=== PATIENT | female | born 1970 | race Caucasian/White ===

== ENCOUNTER 2016-11-08 18:02 | Emergency (ER) ==
[2016-11-08 18:12] VITALS: BP 134/83; TEMP 99.1; BMI 29.0
--- NOTE | 2016-11-08 18:36 | ED.PDOC ---
General ED Provider: Dr. CRYSTAL HURLEY Chief Complaint: Eye Problem Stated Complaint: bilateral eye irritation Time Seen by Physician: 18:20 Mode of Arrival: Walk-In Information Source: Patient Exam Limitations: No limitations Primary Care Provider: ANIBAL HA Nursing and Triage Documentation Reviewed and Agree: Yes EENT Complaint Exam - Eye Complaint/Exam Onset/Duration: some soot got into both eyes stepped on a small mario Symptoms Are: Still present Timing: Constant Initial Severity: Mild Current Severity: Mild Location: Bilateral Aggravating: Reports: Light Alleviating: Reports: None Associated Signs and Symptoms: Denies: Photophobia, Clear drainage, Purulent drainage, Vision impairment, Fever, Swelling Eye Surgical History: Reports: None Penetrating Injury Risk Factors: None Globe Rupture Risk Factors: None Acute Glaucoma Risk Factors: None Optic Artery Occlusion Risk Factors: None Visual Field: Normal Extraocular Movement: Normal Orbit Findings: Normal Globe Findings: Intact Lid Findings: Erythema Corneal Findings: Clear Differential Diagnoses: Conjunctivitis Review of Systems - Review Of Systems Constitutional: Reports: No symptoms Eyes: Reports: Other (counjunctiva red bilateral) Ears, Nose, Mouth, Throat: Reports: No symptoms Respiratory: Reports: No symptoms Cardiac: Reports: No symptoms GI: Reports: No symptoms : Reports: No symptoms Musculoskeletal: Reports: No symptoms Skin: Reports: No symptoms Neurological: Reports: No symptoms Endocrine: Reports: No symptoms Hematologic/Lymphatic: Reports: No symptoms All Other Systems: Reviewed and Negative Past Medical History - Past Medical History Previously Healthy: Yes Endocrine: Reports: Hypothyroid Cardiovascular: Reports: None Respiratory: Reports: Asthma Hematological: Reports: Other (LUPUS) Gastrointestinal: Reports: GERD Genitourinary: Reports: None Neuro/Psych: Reports: Anxiety, Depression Musculoskeletal: Reports: Arthritis Cancer: Reports: None Last Menstrual Period: unknown Other Pertinent Past Medical History: on prednisone for RA - Surgical History General Surgical History: Reports: Hysterectomy, Cholecystectomy, Tonsillectomy , Adenoidectomy, Orthopedic (KNEE SURGERY, LEFT), Back Surgery (NEURO SPINE CORD STIMULATOR CARPAL TUNNEL DGG), Other (NEURO SPINE CORD STIMULATOR CARPAL TUNNEL DGG-gastric sleeve) - Family History Family History: Reports: Unknown - Social History Smoking Status: Never smoker Hx Substance Use: No Alcohol Screening: Occasionally Physical Exam - Physical Exam Appearance: Well-appearing, No pain distress, Well-nourished Eyes: Conjunctiva inflammed (right, left) ENT: Ears normal, Nose normal, Oropharynx normal Respiratory: Airway patent, Breath sounds clear, Breath sounds equal, Respirations nonlabored Cardiovascular: RRR, Pulses normal, No rub, No murmur GI/: Soft, Nontender, No masses, Bowel sounds normal, No Organomegaly Musculoskeletal: Normal strength, ROM intact, No edema, No calf tenderness Skin: Warm, Dry, Normal color Neurological: Sensation intact, Motor intact, Reflexes intact, Cranial nerves intact, Alert, Oriented Psychiatric: Affect appropriate, Mood appropriate Critical Care Note - Critical Care Note Total Time (mins): 0 Course - Course Vital Signs: Temp Pulse Resp BP Pulse Ox 11/08/16 18:05 99.1 F 78 20 134/83 98 Departure - Departure Time of Disposition: 18:36 Disposition: HOME SELF-CARE Discharge Problem: Conjunctivitis Qualifiers: Conjunctivitis type: acute Acute conjunctivitis type: bacterial Instructions: Conjunctivitis (ED) Condition: Good Pt referred to PMD for follow-up: No Additional Instructions: Please call your Family Physician as soon as possible to schedule a follow-up appointment. Allergies/Adverse Reactions: Allergies amoxicillin trihydrate [From Augmentin] Adverse Reaction (Verified 05/28/16 16: 23) cephalexin monohydrate [From Keflex] Adverse Reaction (Verified 05/28/16 16:23) dicloxacillin sodium [From Pathocil] Adverse Reaction (Verified 05/28/16 16:23) nefazodone HCl [From Serzone] Adverse Reaction (Verified 05/28/16 16:23) Penicillins Adverse Reaction (Verified 11/08/16 18:13) potassium clavulanate [From Augmentin] Adverse Reaction (Verified 05/28/16 16:23 ) Home Medications: Ambulatory Orders Tizanidine HCl [Zanaflex] 4 mg PO TID 10/30/13 Levothyroxine Sodium [Synthroid] 88 mcg PO DAILY 12/01/13 Budesonide/Formoterol Fumarate [Symbicort 160-4.5 Mcg Inhaler] 2 puff IH BID 12/17 Albuterol Sulfate [Proair Hfa] 2 puff IH Q6H PRN 01/06/16 Fluoxetine HCl [Prozac] 40 mg PO DAILY 05/28/16 Multivitamin 1 cap PO DAILY 05/28/16 Disposition Discussed With: Patient
== END 2016-11-08 19:02 | disposition home or self-care (01) ==
LOC: ED 18:02
DX: H10.33 Unspecified acute conjunctivitis, bilateral (principal)
CPT/HCPCS: 99282

== ENCOUNTER 2017-01-09 13:02 | Emergency (ER) ==
[2017-01-09 13:10] VITALS: BP 155/83; TEMP 98.7; BMI 28.3
--- NOTE | 2017-01-09 13:19 | ED.PDOC ---
General ED Provider: Dr. YARIEL HERNANDEZ-ER Chief Complaint: Puncture Wound Stated Complaint: i stepped on a nail Time Seen by Physician: 13:16 Mode of Arrival: Walk-In Information Source: Patient Exam Limitations: No limitations Primary Care Provider: ANIBAL HA Nursing and Triage Documentation Reviewed and Agree: Yes Skin Complaint Exam - Skin/Soft Tissue Complaint/Exam Onset/Duration: a few minutes Symptoms Are: Still present Timing: Constant Initial Severity: Mild Current Severity: Mild Location: bottom of right foot Character: Reports: Painful. Denies: Redness, Swelling, Raised Aggravating: Reports: Touch Alleviating: Reports: None Associated Signs and Symptoms: Reports: Tenderness. Denies: Fever, Chills, Itching, Drainage, Bruising, Red streaks, Joint swelling Related History: Reports: Recent trauma Related Surgical History: Reports: None Recent Exposure to Others w/Similar Symptoms: No Skin Findings: Present: Other Joint Tenderness Present: No Differential Diagnoses: Other Review of Systems - Review Of Systems Constitutional: Reports: No symptoms Eyes: Reports: No symptoms Ears, Nose, Mouth, Throat: Reports: No symptoms Respiratory: Reports: No symptoms Cardiac: Reports: No symptoms GI: Reports: No symptoms, Other : Reports: No symptoms Musculoskeletal: Reports: No symptoms Skin: Reports: Other Neurological: Reports: No symptoms Endocrine: Reports: No symptoms Hematologic/Lymphatic: Reports: No symptoms All Other Systems: Reviewed and Negative Past Medical History - Past Medical History Previously Healthy: Yes Endocrine: Reports: Hypothyroid Cardiovascular: Reports: None Respiratory: Reports: Asthma Hematological: Reports: Other (LUPUS) Gastrointestinal: Reports: GERD Genitourinary: Reports: None Neuro/Psych: Reports: Anxiety, Depression Musculoskeletal: Reports: Arthritis Cancer: Reports: None Last Menstrual Period: 1999 Other Pertinent Past Medical History: on prednisone for RA - Surgical History General Surgical History: Reports: Hysterectomy, Cholecystectomy, Tonsillectomy , Adenoidectomy, Orthopedic (KNEE SURGERY, LEFT), Back Surgery (NEURO SPINE CORD STIMULATOR CARPAL TUNNEL DGG), Other (NEURO SPINE CORD STIMULATOR CARPAL TUNNEL DGG-gastric sleeve) - Family History Family History: Reports: Unknown - Social History Smoking Status: Never smoker Hx Substance Use: No Alcohol Screening: Occasionally - Immunizations Tetanus Shot up to Date: Yes Physical Exam - Physical Exam Appearance: Well-appearing, No pain distress, Well-nourished Pain Distress: Mild Eyes: ASHLEY, EOMI, Conjunctiva clear ENT: Ears normal, Nose normal, Oropharynx normal Neck: Supple Respiratory: Airway patent Cardiovascular: RRR, Pulses normal, No rub, No murmur GI/: Soft, Nontender, No masses, Bowel sounds normal, No Organomegaly Musculoskeletal: Normal strength, ROM intact, No edema, No calf tenderness Skin: Warm, Dry, Normal color Neurological: Sensation intact, Motor intact, Reflexes intact, Cranial nerves intact, Alert, Oriented Psychiatric: Affect appropriate, Mood appropriate Critical Care Note - Critical Care Note Total Time (mins): 0 Course - Course Orders, Labs, Meds: Orders Category Date Time Status Wound care [ED WOUND CARE] .ONCE EMERGENCY 01/09/17 13:16 Active Vital Signs: Temp Pulse Resp BP Pulse Ox 01/09/17 13:03 98.7 F 69 20 155/83 H 98 Departure - Departure Time of Disposition: 13:18 Disposition: HOME SELF-CARE Discharge Problem: Puncture wound Instructions: Puncture Wound (ED) Condition: Good Pt referred to PMD for follow-up: Yes Additional Instructions: wash with soap and water daily and apply triple antbx till healed Allergies/Adverse Reactions: Allergies amoxicillin trihydrate [From Augmentin] Adverse Reaction (Verified 05/28/16 16: 23) cephalexin monohydrate [From Keflex] Adverse Reaction (Verified 05/28/16 16:23) dicloxacillin sodium [From Pathocil] Adverse Reaction (Verified 05/28/16 16:23) nefazodone HCl [From Serzone] Adverse Reaction (Verified 05/28/16 16:23) Penicillins Adverse Reaction (Verified 11/08/16 18:13) potassium clavulanate [From Augmentin] Adverse Reaction (Verified 05/28/16 16:23 ) Home Medications: Ambulatory Orders Tizanidine HCl [Zanaflex] 4 mg PO TID 10/30/13 Levothyroxine Sodium [Synthroid] 88 mcg PO DAILY 12/01/13 Fluoxetine HCl [Prozac] 40 mg PO DAILY 05/28/16 Multivitamin 1 cap PO DAILY 05/28/16 Disposition Discussed With: Patient
== END 2017-01-09 13:27 | disposition home or self-care (01) ==
LOC: ED 13:02
DX: S91.339A Puncture wound without foreign body, unspecified foot, initial encounter (principal); W45.0XXA Nail entering through skin, initial encounter
CPT/HCPCS: 99283

== ENCOUNTER 2017-03-30 10:13 | Outpatient (CLI) ==
--- NOTE | 2017-03-30 11:04 | US ---
EXAM: Ultrasound thyroid. HISTORY: Thyromegaly. COMPARISON: None available. TECHNIQUE: Guo-scale and color Doppler images. FINDINGS: The right lobe of the thyroid measures 4.1 x 1.7 x 1.7 cm. There is heterogeneous echogenicity witho ut discrete nodule. The thyroid isthmus measures 0.4 cm. The left lobe of the thyroid measures 3.3 x 1.1 x 1.2 cm. There is heterogeneous echogenicity witho ut discrete nodule. IMPRESSION: Heterogeneous thyroid gland without discrete nodule.
== END 2017-03-30 10:14 | disposition home or self-care (01) ==
LOC: RAD 10:13
PROVIDERS: ATTEND Nurse Practitioner
DX: E01.0 Iodine-deficiency related diffuse (endemic) goiter (principal); E03.9 Hypothyroidism, unspecified
CPT/HCPCS: 36415; 84443

== ENCOUNTER 2017-09-30 10:33 | Outpatient (CLI) | END 2017-09-30 10:34 | disposition home or self-care (01) | LOC: LAB 10:33 | PROVIDERS: ATTEND Nurse Practitioner | DX: E03.9 Hypothyroidism, unspecified (principal); L65.9 Nonscarring hair loss, unspecified; R29.898 Other symptoms and signs involving the musculoskeletal system; R53.83 Other fatigue; R76.8 Other specified abnormal immunological findings in serum; Z97.8 Presence of other specified devices; Z98.84 Bariatric surgery status | CPT/HCPCS: 36415; 84439; 84443; 84481 ==

== ENCOUNTER 2018-01-11 14:05 | Outpatient (CLI) ==
--- NOTE | 2018-01-11 15:56 | DI ---
EXAM: Three views of the left hand HISTORY: Left hand pain. COMPARISON: Right hand x-rays same day FINDINGS: There is no cortical irregularity or displaced fracture of the left hand. There is no lyti c or blastic lesion. Joint spaces are maintained. There is no periosteal reaction. Soft tissues are unremarkable. IMPRESSION: No acute abnormality or displaced fracture of the left hand.
--- NOTE | 2018-01-11 15:58 | DI ---
EXAM: Three views of the right hand HISTORY: Right hand pain. COMPARISON: Left hand x-rays same day FINDINGS: There is no cortical irregularity or displaced fracture of the right hand. There is no lyt ic or blastic lesion. The joint spaces are maintained. Soft tissues are unremarkable. IMPRESSION: No acute abnormality or displaced fracture of the right hand.
== END 2018-01-11 14:06 | disposition home or self-care (01) ==
LOC: RAD 14:05
PROVIDERS: ATTEND Internal Medicine Rheumatology
DX: M25.50 Pain in unspecified joint (principal); M79.642 Pain in left hand; M79.641 Pain in right hand

== ENCOUNTER 2018-02-15 12:52 | Outpatient (CLI) | END 2018-02-15 12:53 | disposition home or self-care (01) | LOC: FCC-LAB 12:52 | PROVIDERS: ATTEND Family Medicine | DX: Z00.00 Encounter for general adult medical examination without abnormal findings (principal); E03.9 Hypothyroidism, unspecified; E55.9 Vitamin D deficiency, unspecified | CPT/HCPCS: 36415; 80053; 80061; 82306; 84443; 85025 ==

== ENCOUNTER 2018-09-24 14:22 | Emergency (ER) ==
[2018-09-24 14:26] VITALS: BP 142/87; TEMP 99.2; BMI 36.4
--- NOTE | 2018-09-24 17:31 | ED.PDOC ---
General ED Provider: Dr. YARIEL ROCK Chief Complaint: Eye Problem Stated Complaint: Possible [place] [facility]. Patient presents stating she was exposed to "pink eye" in that she was around a child with and eye infection. She now has redness and drainage from both eyes which are itching and irritated. Time Seen by Physician: 15:15 Mode of Arrival: Walk-In Information Source: Patient Exam Limitations: No limitations Primary Care Provider: LUDIN WILKERSON Nursing and Triage Documentation Reviewed and Agree: Yes Does patient meet sepsis criteria?: No System Inflammatory Response Syndrome: Not Applicable Sepsis Protocol: For patient's 13 years and over: Temp is 96.8 and below OR 101 and greater Pulse >90 BPM Resp >20/minute Acutely Altered Mental Status Are patient's symptoms suggestive of a new infection, such as: -Pneumonia -Skin, Soft Tissue -Endocarditis -UTI -Bone, Joint Infection -Implantable Device -Acute Abdominal Infection -Wound Infection -Meningitis -Blood Stream Catheter Infection -Unknown EENT Complaint Exam - Eye Complaint/Exam Onset/Duration: 24 hr Symptoms Are: Still present, Worse Timing: Constant Initial Severity: Mild Current Severity: Moderate Location: Bilateral Character: Reports: Dull Aggravating: Reports: Light Alleviating: Reports: None Associated Signs and Symptoms: Reports: Photophobia, Clear drainage, Purulent drainage Related History: Denies: Similar episode Eye Surgical History: Reports: None Penetrating Injury Risk Factors: None Globe Rupture Risk Factors: None Acute Glaucoma Risk Factors: None Optic Artery Occlusion Risk Factors: None Visual Field: Normal Extraocular Movement: Normal Orbit Findings: Normal Globe Findings: Intact Lid Findings: Normal Conjunctival Findings: Red, Exudate Corneal Findings: Clear Fundi: Not visualized Slit Lamp Used: No Differential Diagnoses: Conjunctivitis Review of Systems - Review Of Systems Constitutional: Reports: No symptoms Eyes: Reports: Drainage, Inflammation, Photophobia Ears, Nose, Mouth, Throat: Reports: No symptoms Respiratory: Reports: No symptoms Cardiac: Reports: No symptoms GI: Reports: No symptoms : Reports: No symptoms Musculoskeletal: Reports: No symptoms Skin: Reports: No symptoms Neurological: Reports: No symptoms Endocrine: Reports: No symptoms Hematologic/Lymphatic: Reports: No symptoms All Other Systems: Reviewed and Negative Past Medical History - Past Medical History Previously Healthy: Yes Endocrine: Reports: Hypothyroid Cardiovascular: Reports: None Respiratory: Reports: Asthma Hematological: Reports: Other (LUPUS) Gastrointestinal: Reports: GERD Genitourinary: Reports: None Neuro/Psych: Reports: Anxiety, Depression Musculoskeletal: Reports: Arthritis Cancer: Reports: None Last Menstrual Period: NONE Other Pertinent Past Medical History: on prednisone for RA - Surgical History General Surgical History: Reports: Hysterectomy, Cholecystectomy, Tonsillectomy , Adenoidectomy, Orthopedic (KNEE SURGERY, LEFT), Back Surgery (NEURO SPINE CORD STIMULATOR CARPAL TUNNEL DGG), Other (NEURO SPINE CORD STIMULATOR CARPAL TUNNEL DGG-gastric sleeve) - Family History Family History: Reports: Unknown - Social History Smoking Status: Never smoker Hx Substance Use: No Alcohol Screening: Occasionally Physical Exam - Physical Exam Appearance: Well-appearing, No pain distress, Well-nourished Eyes: ASHLEY, EOMI, Conjunctiva inflammed, Right pupil size (4 mm and reactive OU) , Left pupil size (4 mm and reactive) ENT: Ears normal, Nose normal, Oropharynx normal Respiratory: Airway patent, Breath sounds clear, Breath sounds equal, Respirations nonlabored Cardiovascular: RRR, Pulses normal, No rub, No murmur GI/: Soft, Nontender, No masses, Bowel sounds normal, No Organomegaly Musculoskeletal: Normal strength, ROM intact, No edema, No calf tenderness Skin: Warm, Dry, Normal color Neurological: Sensation intact, Motor intact, Reflexes intact, Cranial nerves intact, Alert, Oriented Psychiatric: Affect appropriate, Mood appropriate Critical Care Note - Critical Care Note Total Time (mins): 0 Course - Course Vital Signs: Temp Pulse Resp BP Pulse Ox 09/24/18 14:22 99.2 F 77 18 142/87 H 97 Departure - Departure Time of Disposition: 15:30 Disposition: HOME SELF-CARE Discharge Problem: Conjunctivitis Instructions: Conjunctivitis (ED) Condition: Fair Pt referred to PMD for follow-up: Yes (next week or prn) IPMP verified?: No Additional Instructions: Use eye susp Warm compresses See pcp next week or return earlier ER as needed Prescriptions: Elvis/Polymyx B Sulf/Dexameth [Maxitrol Opth Susp] 2 drop OP Q4HR #10 ml Allergies/Adverse Reactions: Allergies amoxicillin trihydrate [From Augmentin] Adverse Reaction (Verified 09/24/18 14: 27) cephalexin monohydrate [From Keflex] Adverse Reaction (Verified 09/24/18 14:27) dicloxacillin sodium [From Pathocil] Adverse Reaction (Verified 09/24/18 14:27) nefazodone HCl [From Serzone] Adverse Reaction (Verified 09/24/18 14:27) Penicillins Adverse Reaction (Verified 09/24/18 14:27) potassium clavulanate [From Augmentin] Adverse Reaction (Verified 09/24/18 14:27 ) Home Medications: Ambulatory Orders Multivitamin 1 cap PO DAILY 05/28/16 Albuterol Sulfate [Proair Hfa] 8.5 gm IH PRN PRN 02/15/18 Cetirizine HCl [Zyrtec] 10 mg PO DAILY 02/15/18 Esomeprazole Magnesium [Nexium] 20 mg PO DAILY 02/15/18 Hydroxychloroquine Sulfate [Plaquenil] 400 mg PO DAILY 02/15/18 Montelukast Sodium [Singulair] 10 mg PO DAILY 02/15/18 [place]-3 Fatty Acids/Fish Oil [Fish Oil 1,200 Mg Softgel] 1 each PO DAILY Budesonide/Formoterol Fumarate [Symbicort 80-4.5 Mcg Inhaler] 10.2 gm IH PRN PRN 02/22/18 Sucralfate [Carafate] 1 gm PO DAILY 05/24/18 Fluoxetine HCl [Prozac] 40 mg PO DAILY #30 tab-cap 09/20/18 Elvis/Polymyx B Sulf/Dexameth [Maxitrol Opth Susp] 2 drop OP Q4HR #10 ml 09/24/18 Disposition Discussed With: Family
== END 2018-09-24 17:38 | disposition home or self-care (01) ==
LOC: ED 14:22
DX: H10.9 Unspecified conjunctivitis (principal)
CPT/HCPCS: 99282

== ENCOUNTER 2018-11-18 12:18 | Emergency (ER) ==
[2018-11-18 12:24] VITALS: BP 146/90; BMI 35.9
[2018-11-18 12:37] VITALS: TEMP 98.2
[2018-11-18 13:38] LABS: URINE PREGNANCY TEST NEGATIVE (NEGATIVE)
--- NOTE | 2018-11-18 13:38 | CT ---
EXAM: CT of the head without contrast History: Headache and confusion, numbness of the right face. Technique: Multiplanar CT images through the head were obtained without the administration of IV con trast Findings: The visualized paranasal sinuses and mastoid air cells are clear in general. No acute domonique varial abnormalities. Intracranially the ventricular and cisternal spaces are normal in size, shape and configuration for a patient of this age. No dominant mass or midline shift. No hydrocephalous. No acute intracranial hemorrhage or abnormal extraaxial fluid collections. Impression: No acute intracranial process
--- NOTE | 2018-11-18 14:01 | ED.PDOC ---
General ED Provider: Dr. CRYSTAL HURLEY Chief Complaint: Headache Stated Complaint: headache after dilation of eyes Time Seen by Physician: 12:19 Mode of Arrival: Walk-In Information Source: Patient Exam Limitations: No limitations Primary Care Provider: LUDIN WILKERSON Nursing and Triage Documentation Reviewed and Agree: Yes Does patient meet sepsis criteria?: No System Inflammatory Response Syndrome: Not Applicable Sepsis Protocol: For patient's 13 years and over: Temp is 96.8 and below OR 101 and greater Pulse >90 BPM Resp >20/minute Acutely Altered Mental Status Are patient's symptoms suggestive of a new infection, such as: -Pneumonia -Skin, Soft Tissue -Endocarditis -UTI -Bone, Joint Infection -Implantable Device -Acute Abdominal Infection -Wound Infection -Meningitis -Blood Stream Catheter Infection -Unknown Neurological Complaint Exam - Headache Complaint/Exam Onset: Gradual Duration: today Symptoms Are: Resolved Timing: Intermittent Worst Headache Ever: No Initial Severity: Moderate Current Severity: None Location: Diffuse Aggravating: Reports: None Alleviating: Reports: None Associated Signs and Symptoms: Denies: Dizziness, Seizure, Nausea, Vomiting, Sinus pressure, Fever, Neck pain, Neck stiffness, Decreased LOC, Visual changes Related Surgical History: Reports: None SAH Risk Factors: Reports: None Meningitis Risk Factors: Reports: None SDH Risk Factors: Reports: None Temporal Arteritis Risk Factors: Reports: Female, Normal Head CT Within Last 12 Months: No Fundoscopic Exam: Present: Normal Findings Papilledema Present: No Temporal Artery Tenderness: Present: None Sinus Tenderness: Present: None TMJ Tenderness: Present: None Glascow Coma Scale (see protocol): 15 Meningeal Signs Positive: No ROM Limited In: No Limitiations Focal Weakness: Present: None Focal Sensory Loss: Present: None Gait: Normal Nystagmus Present: No Gag Reflex Present: Yes [id number]: Normal Findings Babinski Sign: Negative Right, Negative Left Differential Diagnoses: Migraine Review of Systems - Review Of Systems Constitutional: Reports: No symptoms Eyes: Reports: No symptoms Ears, Nose, Mouth, Throat: Reports: No symptoms Respiratory: Reports: No symptoms Cardiac: Reports: No symptoms GI: Reports: No symptoms : Reports: No symptoms Musculoskeletal: Reports: No symptoms Skin: Reports: No symptoms Neurological: Reports: Headache Endocrine: Reports: No symptoms Hematologic/Lymphatic: Reports: No symptoms All Other Systems: Reviewed and Negative Past Medical History - Past Medical History Previously Healthy: Yes Endocrine: Reports: Hypothyroid Cardiovascular: Reports: None Respiratory: Reports: Asthma Hematological: Reports: Other (LUPUS) Gastrointestinal: Reports: GERD Genitourinary: Reports: None Neuro/Psych: Reports: Anxiety, Depression Musculoskeletal: Reports: Arthritis Cancer: Reports: None Last Menstrual Period: 4 years ago Other Pertinent Past Medical History: on prednisone for RA - Surgical History General Surgical History: Reports: Hysterectomy, Cholecystectomy, Tonsillectomy , Adenoidectomy, Orthopedic (KNEE SURGERY, LEFT), Back Surgery (NEURO SPINE CORD STIMULATOR CARPAL TUNNEL DGG), Other (NEURO SPINE CORD STIMULATOR CARPAL TUNNEL DGG-gastric sleeve) - Family History Family History: Reports: Unknown - Social History Smoking Status: Never smoker Hx Substance Use: No Alcohol Screening: Occasionally - Immunizations Tetanus Shot up to Date: Yes Physical Exam - Physical Exam Appearance: Well-appearing, No pain distress, Well-nourished Eyes: ASHLEY, EOMI, Conjunctiva clear ENT: Ears normal, Nose normal, Oropharynx normal Respiratory: Airway patent, Breath sounds clear, Breath sounds equal, Respirations nonlabored Cardiovascular: RRR, Pulses normal, No rub, No murmur GI/: Soft, Nontender, No masses, Bowel sounds normal, No Organomegaly Musculoskeletal: Normal strength, ROM intact, No edema, No calf tenderness Skin: Warm, Dry, Normal color Neurological: Sensation intact, Motor intact, Reflexes intact, Cranial nerves intact, Alert, Oriented Psychiatric: Affect appropriate, Mood appropriate - NIH Stroke Scale 1a. Level of Consciousness: 0=Alert and keenly responsive 1b. Level of Consciousness Questions: 0=Answers correctly to two questions 1c. Level of Consciousness Commands: 0=Performs two tasks correctly 2. Best Gaze: 0=Normal 3. Visual: 0=No visual loss 4. Facial Palsy: 0=Normal 5a. Motor Left Arm: 0=No drift,arm holds 90 degrees for 10 sec., leg 30 degrees for 5 sec. 5b. Motor Right Arm: 0=No drift,arm holds 90 degrees for 10 sec., leg 30 degrees for 5 sec. 6a. Motor Left Le=No drift,arm holds 90 degrees for 10 sec., leg 30 degrees for 5 sec. 6b. Motor Right Le=No drift,arm holds 90 degrees for 10 sec., leg 30 degrees for 5 sec. 7. Limb Ataxia: 0=Absent 8. Sensory: 0=Normal 10. Dysarthria: 0=Normal 11. Extincion and Inattention: 0=Normal Stroke Scale Total: 0 Interpretation - [facility] Rate: Normal Rhythm: Sinus - EKG Interpretation Rate: Normal Rhythm: Sinus Ectopy: None [place]: [place] ST Segment: Normal Critical Care Note - Critical Care Note Total Time (mins): 0 Course - Course Hematology/Chemistry: 11/18/18 13:15 11/18/18 13:15 Orders, Labs, Meds: Lab Review 11/17/18 11/17/18 11/17/18 13:29 13:29 13:29 WBC RBC Hgb Hct MCV MCH MCHC RDW Coeff of Sarah Plt Count Immature Gran % (Auto) Neut % (Auto) Lymph % (Auto) [place] % (Auto) Eos % (Auto) Baso % (Auto) Immature Gran # (Auto) Neut # (Auto) Lymph # (Auto) [place] # (Auto) Eos # (Auto) Baso # (Auto) Sodium Potassium Chloride Carbon Dioxide Anion Gap BUN Creatinine Estimated GFR (MDRD) BUN/Creatinine Ratio Glucose Calcium Total Bilirubin AST ALT Alkaline Phosphatase Total Protein Albumin Globulin Albumin/Globulin Ratio Urine Color Yellow Urine Clarity Clear Urine pH 5.5 Ur Specific [place] >=1.030 Urine Protein 1+ Urine Glucose (UA) Negative Urine Ketones Negative Urine Blood Negative Urine Nitrite Negative Urine Bilirubin Negative Urine Urobilinogen 0.2 Ur Leukocyte Esterase Negative Ur Squamous Epith Cells 5-10 Urine Mucus 3+ Urine Test Negative Influ A Molecular Assay Negative by naat Influ B Molecular Assay Negative by naat 11/18/18 11/18/18 13:15 13:15 WBC 6.66 RBC 4.45 Hgb 13.3 Hct 39.7 MCV 89.2 MCH 29.9 MCHC 33.5 RDW Coeff of Sarah 12.0 Plt Count 203 Immature Gran % (Auto) 0.2 Neut % (Auto) 53.8 Lymph % (Auto) 35.4 [place] % (Auto) 6.6 Eos % (Auto) 3.2 Baso % (Auto) 0.8 Immature Gran # (Auto) 0.0 Neut # (Auto) 3.6 Lymph # (Auto) 2.4 [place] # (Auto) 0.4 Eos # (Auto) 0.2 Baso # (Auto) 0.1 Sodium 141.9 Potassium 4.28 Chloride 100.3 Carbon Dioxide 33.0 H Anion Gap 12.88 BUN 14.8 Creatinine 0.64 Estimated GFR (MDRD) 100.00 BUN/Creatinine Ratio 23.12 Glucose 100.3 Calcium 9.96 Total Bilirubin 0.49 AST 23.5 ALT 14.3 Alkaline Phosphatase 57.1 Total Protein 7.99 Albumin 4.63 Globulin 3.36 Albumin/Globulin Ratio 1.37 Urine Color Urine Clarity Urine pH Ur Specific [place] Urine Protein Urine Glucose (UA) Urine Ketones Urine Blood Urine Nitrite Urine Bilirubin Urine Urobilinogen Ur Leukocyte Esterase Ur Squamous Epith Cells Urine Mucus Urine Test Influ A Molecular Assay Influ B Molecular Assay Orders Category Date Time Status CBC W/ AUTO DIFF Stat LAB 11/18/18 13:15 Completed COMPREHENSIVE METABOLIC PANEL Stat LAB 11/18/18 13:15 Completed FLU A/B MOLECULAR Stat LAB 11/17/18 13:29 Completed MOLECULAR GROUP A STREP Stat LAB 11/17/18 13:29 Completed URINALYSIS C & S IF INDICATED Stat LAB 11/17/18 13:29 Completed URINE Stat LAB 11/17/18 13:[address] HEAD W/O CONTRAST Stat RADS 11/18/18 13:04 Completed Vital Signs: Temp Pulse Resp BP Pulse Ox 11/18/18 12:24 98.2 F 68 18 146/90 H 97 11/18/18 12:18 98.1 F 70 18 146/90 H 96 Departure - Departure Time of Disposition: 14:02 Disposition: HOME SELF-CARE Discharge Problem: Headache Instructions: Acute Headache (DC) Condition: Good Pt referred to PMD for follow-up: Yes IPMP verified?: No Additional Instructions: Please call your Family Physician as soon as possible to schedule a follow-up appointment. Allergies/Adverse Reactions: Allergies amoxicillin trihydrate [From Augmentin] Adverse Reaction (Verified 09/24/18 14: 27) cephalexin monohydrate [From Keflex] Adverse Reaction (Verified 09/24/18 14:27) dicloxacillin sodium [From Pathocil] Adverse Reaction (Verified 09/24/18 14:27) nefazodone HCl [From Serzone] Adverse Reaction (Verified 09/24/18 14:27) Penicillins Adverse Reaction (Verified 09/24/18 14:27) potassium clavulanate [From Augmentin] Adverse Reaction (Verified 09/24/18 14:27 ) Home Medications: Ambulatory Orders Multivitamin 1 cap PO DAILY 05/28/16 Cetirizine HCl [Zyrtec] 10 mg PO DAILY 02/15/18 Hydroxychloroquine Sulfate [Plaquenil] 400 mg PO DAILY 02/15/18 Montelukast Sodium [Singulair] 10 mg PO DAILY 02/15/18 [place]-3 Fatty Acids/Fish Oil [Fish Oil 1,200 Mg Softgel] 1 each PO DAILY Sucralfate [Carafate] 1 gm PO DAILY 05/24/18 Fluoxetine HCl [Prozac] 40 mg PO DAILY #30 tab-cap 09/20/18 Elvis/Polymyx B Sulf/Dexameth [Maxitrol Opth Susp] 2 drop OP Q4HR #10 ml 09/24/18
== END 2018-11-18 14:05 | disposition home or self-care (01) ==
LOC: ED 12:18
DX: R51 Headache (principal)
CPT/HCPCS: 36415; 80053; 81001; 81025; 85025; 87502; 87651; 99283

== ENCOUNTER 2019-01-02 13:51 | Outpatient (CLI) | END 2019-01-02 13:52 | disposition home or self-care (01) | LOC: LAB 13:51 | PROVIDERS: ATTEND Family Medicine | DX: E03.9 Hypothyroidism, unspecified (principal); R76.8 Other specified abnormal immunological findings in serum; M25.50 Pain in unspecified joint | CPT/HCPCS: 36415; 80053; 84443; 85025; 85651; 86140 ==

== ENCOUNTER 2019-02-13 11:51 | Outpatient (CLI) | payer OTHER | END 2019-02-13 11:52 | disposition home or self-care (01) | LOC: RHC-LAB 11:51 → FCC-LAB 11:52 | PROVIDERS: ATTEND Family Medicine | DX: H57.13 Ocular pain, bilateral (principal); H53.9 Unspecified visual disturbance | CPT/HCPCS: 36415; 80053 ==

== ENCOUNTER 2019-03-20 12:17 | Outpatient (CLI) | END 2019-03-20 12:18 | disposition home or self-care (01) | LOC: RHC-LAB 12:17 → FCC-LAB 12:18 | PROVIDERS: ATTEND Family Medicine | DX: E03.9 Hypothyroidism, unspecified (principal); E55.9 Vitamin D deficiency, unspecified; R53.81 Other malaise; E83.52 Hypercalcemia; R25.2 Cramp and spasm | CPT/HCPCS: 36415; 80053; 82306; 83735; 84100; 84439; 84443; 85025 ==

== ENCOUNTER 2019-06-12 11:59 | Outpatient (CLI) | END 2019-06-12 12:00 | disposition home or self-care (01) | LOC: RHC-LAB 11:59 → FCC-LAB 12:00 | PROVIDERS: ATTEND Family Medicine | DX: N64.3 Galactorrhea not associated with childbirth (principal); Z68.35 Body mass index [BMI] 35.0-35.9, adult | CPT/HCPCS: 36415; 80061; 84146; 84443 ==